=== PATIENT | male | born 1965 | race Caucasian/White ===

== ENCOUNTER 2017-03-23 09:49 | Day surgery (SDC) | payer OTHER ==
[2017-03-23] MEDS ORDERED: LR 1,000 ML IV ONE (10:12)
[2017-03-23] MEDS ORDERED: LIDOCAINE 1% 2 ML INJ ID PRN (10:12)
[2017-03-23 10:25] VITALS: PULSE 67
--- NOTE | 2017-03-23 10:43 | PDANEPAE ---
ANE History of Present Illness 51 year old male for colonoscopy. 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 - Neurologic History Hx Cerebrovascular Accident: No Hx Seizures: No Hx Dementia: No Neurologic History Comment: 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 PERSONAL HX IBS, REFLUX DIET CONTROLLED - Other Health History Other Health History: NA - Chronic Pain History Chronic Pain: Yes (NECK, BACK, HIP) - Surgical History Prior Surgeries: HX COLONOSCOPY 2006. R HIP SCOPE 2009. ORAL SURG CHILD ANE Review of Systems - Exercise capacity Exercise capacity: >=4 METS METS (RN): 6 METS ANE Patient History - Allergies Allergies/Adverse Reactions: venom-honey bee [bee venom (honey bee)] Allergy (Severe, Verified 03/21/16 20:20 ) Swelling/neck,face,throat - Home Medications Home medications: home medication list seen and reviewed Home Medications: ALPRAZolam [Xanax 0.5 MG (*)] 0.5 mg PO TID PRN 03/21/16 [Last Taken 03/21/16 13 :00] Diazepam [Valium 5 MG (*)] 5 mg PO HS PRN 03/21/16 [Last Taken 03/20/16] Herbals/Supplements -Info Only 1 ea PO DAILY 03/21/16 [Last Taken Unknown] Methylphenidate HCl [Ritalin 5mg (*)] 10 mg PO BID PRN 03/21/16 [Last Taken 10:00] Mirtazapine [Remeron] 45 mg PO HS 03/21/16 [Last Taken 03/20/16] Clonidine 0.1 mg PO HS PRN 03/21/17 [Last Taken Unknown] Modafinil 200 mg PO DAILY 03/21/17 [Last Taken Unknown] - NPO status NPO Status: no food or drink >8 hours NPO Since - Liquids (Date): 03/22/17 NPO Since - Liquids (Time): 02:30 NPO Since - Solids (Date): 03/22/17 NPO Since - Solids (Time): 09:00 - Anes Hx Anes Hx: no prior problems - Smoking Hx Smoking Status: Never smoked - Alcohol Use Alcohol Use: Rarely - Family Anes Hx Family Anes Hx: neg - N/A Family Hx Anesthesia Complications: NEG ANE Labs/Vital Signs - Vital Signs Vital Signs: reviewed preoperatively; see RN documention for details Blood Pressure: 121/82 Heart Rate: 67 Respiratory Rate: 14 O2 Sat (%): 94 Height: 185.42 cm Weight: 90.718 kg ANE Physical Exam - Airway Neck exam: FROM Mallampati Score: Class 1 Mouth exam: normal dental/mouth exam - Pulmonary Pulmonary: no respiratory distress - Cardiovascular Cardiovascular: regular rate and rhythym - ASA Status ASA Status: III ANE Anesthesia Plan Anesthesia Plan: GA with mask Total IV Anesthesia: Yes
--- NOTE | 2017-03-23 10:44 | PDGENHP ---
History & Physical Chief Complaint: screening colon History of Present Illness: screening Pertinent Past, Social, Family History: reviewed. parents with polyps > age 60. Relevant Physical Exam: nad Cardiorespiratory Assessment: rrr. ctab
[2017-03-23] MEDS ORDERED: PROPOFOL 200 MG/20 ML VIAL ONE (10:48)
[2017-03-23] MEDS ORDERED: PROPOFOL/EMULSION 500 MG/50 ML BOTTLE IV ONE (10:55)
[2017-03-23] MEDS ORDERED: NALOXONE HCL 0.4 MG/ML INJ IVP PRN (10:58)
[2017-03-23] MEDS ORDERED: LR 500 ML IV PRN (10:58)
[2017-03-23] MEDS ORDERED: ONDANSETRON 4 MG/2 ML VIAL IVP PRN (10:58)
[2017-03-23] MEDS ORDERED: fentaNYL 100 MCG/2 ML INJ IVP PRN (10:58)
[2017-03-23] MEDS ORDERED: ONDANSETRON 4 MG/2 ML VIAL ONE (11:02)
[2017-03-23 11:40] VITALS: TEMP 97.5
--- NOTE | 2017-03-23 11:55 | POSTANESTH ---
Post Anesthetic Evaluation Cardiovascular Status: Normal, Stable, Similar to Pre-Op Cond Respiratory Status: Normal, Stable, Similar to Pre-op Cond. Level of Consciousness/Mental Status: Can Participate in Eval, Alert and Oriented Pain Control: Adequate, Prn Tx Ordered Nausea/Vomiting Control: Adequate, Prn Tx Ordered Complications Possibly Related to Anesthesia: None Noted
[2017-03-23 12:15] VITALS: BP 114/84; RESP 18; O2SAT 97
--- NOTE | 2017-03-23 12:36 | GPN ---
[f rep st] PROCEDURE NOTE DATE OF PROCEDURE: 03/23/2017 PROCEDURE: Colonoscopy with biopsy and polypectomy. INDICATION: Average-risk screening colonoscopy. CONSENT: Informed consent was obtained from the patient after explanation of risks, benefits and al ternatives to the procedure. MEDICATIONS GIVEN: Per Anesthesia. ESTIMATED BLOOD LOSS: None. COMPLICATIONS: None. DESCRIPTION OF EXAM: After adequate sedation was achieved, the colonoscope was advanced through the anal orifice and as far as the cecum and terminal ileum. Retroflexion was performed in the ascendi ng colon and in the rectum. Views were excellent. Quality of preparation was excellent. Patient t olerance was excellent. Greater than 10 minutes were spent on colon withdrawal time. Findings are as noted below. Appendiceal orifice, ileocecal valve, terminal ileum and retroflexed view in the re ctum were all photographed. FINDINGS: 1. Normal terminal ileum. 2. 3 sessile ascending colon polyps were found, ranging in diameter from 2 mm to 5 mm. These were all removed in 1 piece with cold snare polypectomy and retrieved and placed in a jar for pathology. 3. There was mild patchy colitis noted in the distal hepatic flexure to the mid transverse colon wi th patchy areas of small ulcerations and erythema. Biopsies were taken for histologic examination. 4. 3 mm descending colon polyp was removed with cold snare polypectomy. 5. Sigmoid diverticulosis was noted and was moderate. 6. Large internal hemorrhoids were noted on retroflexion in the rectum. IMPRESSION: A total of 4 polyps were removed, along with patchy colitis with some small ulcers in t he transverse colon. I suspect that colitis may be related to nonsteroidal anti-inflammatory drugs, as it did not appear very consistent with either Crohn's or ulcerative colitis. Biopsies are pendi ng. RECOMMENDATIONS: 1. Await pathology results. 2. If 1 or 2 polyps are adenomas, then repeat colonoscopy in 5 years. If 3 or 4 polyps are adenoma s, then repeat colonoscopy in 3 years. 3. Recommend that patient avoid or cut back on NSAID use, and further recommendations regarding col itis will be based on the histologic examination of the biopsies. 4. If hemorrhoids bleed on a regular basis, patient is welcome to call to schedule a hemorrhoid ass essment and possible banding. 5. Resume regular diet. /[id number]/MODL
== END 2017-03-23 12:26 | disposition home or self-care (01) ==
LOC: FSGY 09:49
PROVIDERS: ATTEND Internal Medicine
DX: Z12.11 Encounter for screening for malignant neoplasm of colon (principal); D12.2 Benign neoplasm of ascending colon; K52.9 Noninfective gastroenteritis and colitis, unspecified; K64.9 Unspecified hemorrhoids; Z83.71 Family history of colonic polyps; Z87.820 Personal history of traumatic brain injury
CPT/HCPCS: J2405; J2704